=== PATIENT | female | born 1930 | race Caucasian/White ===

== ENCOUNTER 2016-12-08 01:51 | Inpatient (IN) | payer MEDICARE, OTHER ==
[2016-12-08] MEDS ORDERED: HYDROcodone/APAP 5-325MG 1 EACH TAB PO PRN (03:55)
[2016-12-08] MEDS ORDERED: HYDROmorphone 1 MG/ML 1 ML SYRINGE IVP STA (03:55)
[2016-12-08] MEDS: SODIUM CHLORIDE 0.9% 1,000 ML IV SCH ×2 (04:41→14:12)
[2016-12-08] MEDS ORDERED: LEVOFLOXACIN 500MG-D5W PMX 500 MG in DEXTROSE/WATER 1 100ML.BAG IVPB SCH (08:00)
[2016-12-08 08:05] VITALS: BP 125/66; PULSE 57; RESP 17; TEMP 97.7
[2016-12-08 12:59] LABS: CH 30.8; CHCM 32.7; HCT 38.6 % (34.0-46.0); HDW 2.34; HGB 12.6 gm/dL (11.4-16.0); MCHC 32.8 g/dL (31.0-37.0); MCV 94.7 fL (80.0-100.0); Mean Platelet Volume 7.1; RBC 4.07 m/uL (3.80-5.40); RDW 12.6 % (11.5-15.5); WBC 5.4 k/uL (3.8-10.6)
[2016-12-08 13:13] LABS: Calcium 8.6 mg/dL (8.4-10.2); Potassium 3.9 mmol/L (3.5-5.1); Total Bilirubin 1.4 mg/dL (0.2-1.3); Total Protein 6.3 g/dL (6.3-8.2)
--- NOTE | 2016-12-08 15:34 | HP ---
DATE OF ADMISSION: This dictation is both H&P and discharge summary. The patient is a very pleasant 86-year-old female who was transferred from [facility] for evaluation by Urology and patient was seen in [facility] because of right flank pain, sharp in nature, radiating to the front. Patient did get a CT of the abdomen which showed 5 mm nephrolithiasis and patient actually went to the facility for possible upper respiratory tract infection as patient was having runny nose and cough. Patient was complaining of a little bit of chills, although there is no fever evident here in the hospital. Patient had 5 mm stone. Patient did not receive any pain medication in spite of which pain resolved. Patient may have passed the stone already and 5 mm is a passable stone. Patient has some perinephric stranding because of which there is suspicion of sepsis, although the patient did not appear to have any leukocytosis at the other hospital, but did have lactic acid of 3.5. Because UA was inconclusive, I will obtain UA and urine cultures. Repeat CBC and basic metabolic profile here. Repeat lactic acid as well. If lactic acid comes back normal, I gave the patient option that she can be discharged with oral antibiotics or stay here overnight for monitoring, but patient wanted to be discharged. The patient will be discharged on levofloxacin for about 7 days. If lactic acid is okay here, patient will be discharged. Patient will be encouraged to drink lots of water and patient has mild renal dysfunction, not sure whether patient has acute or chronic CKD. Appears to be CKD, patient is on lisinopril because of the normal blood pressures here, I am going to hold off ( ) until she sees her primary doctor, Dr. Osito Casarez. REVIEW OF SYSTEMS: CONSTITUTIONAL: No fever, no malaise, no fatigue. HEENT: No recent visual problems or hearing problems. Denied any sore throat. CARDIOVASCULAR: No chest pain, orthopnea, PND, no palpitations, no syncope. RESPIRATORY: As described in HPI. ABDOMINAL: As described in HPI. NEUROLOGICAL: No headaches, no weakness, no numbness. HEMATOLOGICAL: Denies any bleeding or petechiae. GENITOURINARY: Denies any burning micturition, frequency, or urgency. MUSCULOSKELETAL/RHEUMATOLOGICAL: Denies any joint pain, swelling, or any muscle pain. ENDOCRINE: Denies any polyuria or polydipsia. The rest of the 14 point review of systems is negative. Home medications include: 1. Tumeric. 2. Omeprazole. 3. Minetto-3 fatty acids. 4. Cholecalciferol. 5. Cetirizine. 6. Alprazolam. 7. Levofloxacin. 8. Hydrocodone acetaminophen. PAST MEDICAL HISTORY: Significant for hypertension and section in the past. SOCIAL HISTORY: Denied any smoking, alcohol abuse or any drug abuse. FAMILY HISTORY: Significant for hypertension. PHYSICAL EXAMINATION: VITAL SIGNS: Temperature 97.7, pulse of 57, respiratory rate 17, blood pressure 125/66, saturating at 91% on room air. GENERAL: The patient is alert and oriented x3, not in any acute distress. Well developed, well nourished. HEENT: Pupils are round and equally reacting to light. EOMI. No scleral icterus. No conjunctival pallor. Normocephalic, atraumatic. No pharyngeal erythema. No thyromegaly. CARDIOVASCULAR: S1 and S2 present. No murmurs, rubs, or gallops. PULMONARY: Chest is clear to auscultation, no wheezing or crackles. ABDOMEN: Soft, nontender, nondistended, normoactive bowel sounds. No palpable organomegaly. MUSCULOSKELETAL: No joint swelling or deformity. EXTREMITIES: No cyanosis, clubbing, or pedal edema. NEUROLOGICAL: Gross neurological examination did not reveal any focal deficits. SKIN: No rashes. LABORATORY DATA: CBC and CMP abnormal for mildly elevated BUN and creatinine of 22 and 1.23, I do not have her baseline creatinine. ASSESSMENT AND PLAN: 1. Right flank pain, probably due to nephrolithiasis and passed a stone. There is possibility of urinary tract infection because of which I am discharging her on antibiotics. 2. Benign essential tremor. Further management as an outpatient. Patient gets this tremor even more when she is anxious. 3. Hypertension. Hold off ( ) because of above-mentioned reasons. 4. Possibility of urinary tract infection. 5. Gastroesophageal reflux disease. 6. Lactic acidosis secondary to dehydration along with infection. Patient received IV fluids here. Will repeat lactic acid and if it comes back to normal, patient will be discharged with levofloxacin for 7 days. Follow with primary care physician. Will set up Urology followup as well. DISCHARGE DIET: Cardiac. Activity as tolerated. This dictation is both H&P and discharge summary.
[2016-12-08 16:16] LABS: Appearance,Urine Clear (Clear); Bilirubin,Urine Negative (Negative); Glucose,Urine (UA) Negative (Negative); Ketones,Urine Negative (Negative); Leukocyte Esterase,Urine Negative (Negative); Mucus,Urine Rare /hpf; Nitrite,Urine Negative (Negative); PH, Urine 5.5 (5.0-8.0); Particle Count 792; Protein,Urine Negative (Negative); RBC,Urine 6 /hpf (0-5); Specific Gravity,Urine 1.013 (1.001-1.035); Squamous Epithelial Cell,Urine 1 /hpf (0-4); UA Billing (MACRO vs. MICRO) MICRO; Urobilinogen,Urine <2.0 mg/dL (<2.0); WBC,Urine 2 /hpf (0-5)
== END 2016-12-09 03:22 | disposition home or self-care (01) | DRG 694 ==
LOC: 3SUR 02:44
PROVIDERS: ADMIT Internal Medicine; ATTEND Internal Medicine
DX: N20.0 Calculus of kidney (principal); E87.2 Acidosis; E86.0 Dehydration; N39.0 Urinary tract infection, site not specified; G25.0 Essential tremor; I10 Essential (primary) hypertension; K21.9 Gastro-esophageal reflux disease without esophagitis; Z82.49 Family history of ischemic heart disease and other diseases of the circulatory system; Z79.899 Other long term (current) drug therapy
CPT/HCPCS: 80053; 81001; 83605; 85027; 87086